=== PATIENT | female | born 1985 | race Caucasian/White ===

== ENCOUNTER 2018-11-22 10:00 | Outpatient (CLI) | payer BC ==
[2018-11-22] VITALS (17 sets, daily range): BP systolic 120–153; BP diastolic 62–93
== END 2018-11-22 23:59 | disposition home or self-care (01) ==
LOC: CARD DIAG 10:00
PROVIDERS: ATTEND Internal Medicine Interventional Cardiology
DX: R55 Syncope and collapse (principal); R42 Dizziness and giddiness
CPT/HCPCS: 93660